=== PATIENT | male | born 1970 | race Caucasian/White ===

== ENCOUNTER 2017-08-06 14:59 | Emergency (ER) | payer OTHER ==
[2017-08-06 15:07] VITALS: BP 115/73; BMI 29.0
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
== END 2017-08-06 16:11 | disposition home or self-care (01) ==
LOC: ER 15:30
DX: M54.16 Radiculopathy, lumbar region (principal)
CPT/HCPCS: 99281; 99282